=== PATIENT | male | born 1975 | race Hispanic/Latino ===

== ENCOUNTER → 2016-12-04 | Outpatient (REF) ==
--- NOTE | 2016-12-04 18:46 | REP ---
BILATERAL KNEE SERIES, COMPLETE: 12/04/2016. Clinical history: Bilateral knee pain. Disability determination. Findings: Right knee: Five views are provided. Medial and lateral joint spaces are preserved. Patellofemoral joint space shows slight narrowing of the lateral facet articulation with a few millimeters of lateral subluxation. There is a small spur at the inferior aspect of the patella at the patellar tendon origin. No definite suprapatellar effusion, fracture, loose body, osteochondral defect. No avulsion. Impression: 1. Some minimal spurring at the inferior margin of the patella at the origin of the patellar tendon without fracture, loose body or joint effusion. 2. Mild degenerative changes with some minimal patellar subluxation laterally by a few millimeters and slight narrowing of the lateral patellofemoral joint space on sunrise view. Left knee: Five views are provided. A tiny spur at the medial tibial plateau without narrowing of the medial or lateral compartment. There is no loose body, osteochondral defect and no joint effusion. I see no significant patellar spurring. On the sunrise view there is no patellar subluxation and only minimal narrowing of the lateral patellofemoral joint space. No fracture, destructive lesion and no avulsion. Impression: 1. Patellofemoral joint with minimal degenerative changes. No other finding. Signed by Humphrey Rodriguez MD 12/04/2016 08:28 P
--- NOTE | 2016-12-04 18:47 | REP ---
LUMBAR SPINE, COMPLETE: 12/04/2016. Clinical history: Back pain, disability determination. Five views are provided. There is bilateral spondylolysis of L5 with a few millimeters of anterolisthesis of L5 on S1. That disc space is slightly narrowed. The other disc spaces and all vertebral body heights are intact. Pedicle, spinous and transverse processes intact. SI joints, sacral ala and foramina intact. No other significant finding. Impression: 1. Bilateral L5 spondylolysis with minimal grade 1 anterolisthesis of L5 on S1. No other significant or acute finding. Signed by Humphrey Rodriguez MD 12/04/2016 08:28 P
--- NOTE | 2016-12-04 18:48 | REP ---
Right ankle series, complete: 12/04/2016. Clinical history: Ankle pain. Disability determination. No prior studies. Four views are provided. There is minor soft tissue swelling anterior and lateral to the ankle. Mortise joint was symmetric and preserved. There is no talar dome osteochondral defect. There is a small bone island in the distal tibial metaphysis. Subtalar joints are intact. No heel spurs and no visible fracture or destructive lesion. Impression: 1. Some minor soft tissue swelling about the ankle anterior and anterolateral but no fracture, disruption of the mortise joint, loose body or osteochondral lesion. No heel spur. Signed by Humphrey Rodriguez MD 12/04/2016 08:28 P
--- NOTE | 2016-12-04 18:54 | REP ---
CHEST X-RAY, PA AND LATERAL: 12/04/2016. Clinical history: Disability determination. There are no prior studies. FINDINGS: The two views show lungs adequately inflated. There is no pleural effusion, acute infiltrate, atelectasis or mass. Heart, mediastinal and hilar contours are normal. Airway is intact. There is no pleural thickening or apical scarring. No pneumothorax. Bony thorax is unremarkable. There is no free air. Impression: 1. No acute cardiopulmonary change. Signed by Humphrey Rodriguez MD 12/04/2016 08:28 P
== END ==
LOC: M SMT 11:49
PROVIDERS: ATTEND Internal Medicine
DX: M25.579 Pain in unspecified ankle and joints of unspecified foot (principal); M24.661 Ankylosis, right knee; M47.896 Other spondylosis, lumbar region